=== PATIENT | female | born 1990 | race Two or more races ===

== ENCOUNTER 2024-09-30 14:13 | Emergency (ER) | payer MEDICAID, SELFPAY ==
[2024-09-30 14:13] VITALS: BMI 29.9
[2024-09-30 14:24] VITALS: BP 160/98; PULSE 85; RESP 18; TEMP 36.7; O2SAT 100; BMI 30.6
--- NOTE | 2024-09-30 14:30 | XR_ITS ---
Examination: PA lateral chest 2 views TECHNIQUE: Upright PA lateral chest 2 views Exam date and time: September 30, 2024 1445 hours INDICATIONS: Onset chest pain beginning last night. FINDINGS: Normal heart size Lungs are clear. The osseous structures are intact IMPRESSION: No active disease
--- NOTE | 2024-09-30 14:30 | EKG_ITS ---
[facility] Test Date: 2024-09-30 Pat Name: ANGEL HICKMAN Department: Room: - Gender: Female Supervisor [employer]: : 1990 Requested By: Vicente De Leon (LEANDRO) Order Number: [id number] Reading MD: Vicente De Leon (TRIMMING CASER) Measurements Intervals [place] Rate: 82 P: 57 GA: 169 QRS: 27 QRSD: 101 T: 32 QT: 376 QTc: 442 Interpretive Statements SINUS RHYTHM Compared to ECG 04/02/2024 10:08:18 No significant changes /store/S0/[id number].pdf
--- NOTE | 2024-09-30 14:31 | PD.EDRME ---
Rapid Medical Screening Exam RME Arrival date/time: 09/30/24 14:13 34-year-old female with history of hypertension presents emergency department complaint of chest pain ongoing x 1 day Chief Complaint: Shortness of Breath/Dyspnea Vital signs: Vital Signs Temperature 98.1 F 09/30/24 14:24 Pulse Rate 85 09/30/24 14:24 Respiratory Rate 18 09/30/24 14:24 Blood Pressure 160/98 H 09/30/24 14:24 Pulse Oximetry (%) 100 09/30/24 14:24 Oxygen Delivery Method Room Air 09/30/24 14:24
[2024-09-30 15:07] LABS: Basophils % (Auto) 0 % (0-2.5); Eosinophils # (Auto) 0.1 Thou/mm3 (0.0-0.5); Eosinophils % (Auto) 1 % (0-10); Hematocrit 36.4 % (36.0-46.0); Hemoglobin 12.2 g/dL (12.0-16.0); Immature Granulocytes % (Auto) 1 % (0-0); Immature Granulocytes Auto 0.05 Thou/mm3 (0.00-0.00); Lymphocytes # (Auto) 1.8 Thou/mm3 (1.0-4.8); Lymphocytes % (Auto) 18 % (10-50); Mean Corpuscular HGB Conc 33.5 g/dl (31.0-37.0); Mean Corpuscular Hemoglobin 30.7 pg (25.0-35.0); Mean Corpuscular Volume 92 fL (80-100); Monocytes # (Auto) 0.8 Thou/mm3 (0.0-0.8); Monocytes % (Auto) 7 % (0-12); Neutrophils # (Auto) 7.5 Thou/mm3 (1.8-7.7); Neutrophils % (Auto) 73 % (37-80); Nucleated Red Blood Cell % 0 /100 WBC (0); Platelet Count 357 Thou/mm3 (140-440); RDW Standard Deviation 45.6 fL (36.4-46.3); Red Blood Count 3.98 Miln/mm3 (4.00-5.20); White Blood Count 10.2 Thou/mm3 (3.6-11.0)
[2024-09-30 15:28] LABS: HCG,Qualitative Serum Negative
[2024-09-30 15:35] LABS: Alanine Aminotransferase 54 U/L (10-49); Albumin, Serum 4.4 gm/dL (3.5-5.0); Albumin/Globulin Ratio 1.7 (1.2-2.2); Alkaline Phosphatase 183 U/L (46-116); Anion Gap 8 (7-16); Aspartate Amino Transferase 40 U/L (0-34); BUN/Creatinine Ratio 18 Ratio (12-20); Bilirubin,Total 0.2 mg/dL (0.3-1.2); Blood Urea Nitrogen 11 mg/dL (9-23); Calcium 8.8 mg/dL (8.3-10.6); Calcium (Corrected) 8.8 mg/dL (8.5-10.1); Carbon Dioxide 24.5 mMol/L (20.0-31.0); Chloride 103 mMol/L (98-107); Creatinine (Component) 0.6 mg/dL (0.6-1.3); Estimated Creatinine Clearance 139.6 mL/min (>60); Globulin 2.6 gm/dL (2.3-3.5); Glucose 103 mg/dL (74-106); Osmolality,Calculated 269 (275-295); Potassium 3.5 mMol/L (3.4-5.1); Sodium 135 mMol/L (136-145); Troponin I < 0.002 ng/mL (0.0-0.045); eGFR > 60 See Note
[2024-09-30 15:53] VITALS: BP 144/89; PULSE 86
--- NOTE | 2024-09-30 16:05 | PD.EDADULT ---
ED General RME/HPI General Chief complaint: Shortness of Breath/Dyspnea Stated complaint: TROUBLE BREATHING AND CHEST PAIN Time Seen by Provider: 09/30/24 15:59 Arrival date/time: 09/30/24 14:13 CC: Chest pain HPI onset of right sided chest pain last night, did not wake her up during the night currently 5-6 on a 10 scale. Patient has sites because of specific tenderness along the costosternal border no left-sided chest pain no prior history of similar events. Denies fever chills shortness of breath or difficulty breathing. No OTC medicines taken for pain. RME / HPI RME / HPI narrative: 09/30/24 14:13 34-year-old female with history of hypertension presents emergency department complaint of chest pain ongoing x 1 day Related Data Previous Rx's ?Medication ?Instructions ?Recorded ibuprofen 800 mg tablet (IBU) 800 mg PO TID PRN pain #30 tabs 07/17/21 metaxalone 800 mg tablet (Skelaxin) 800 mg PO TID PRN muscle pain #30 02/16/22 tabs methylprednisolone 4 mg tablets in See Rx Instructions .Route 02/16/22 a dose pack (Methylpred DP) .COMPLEX #21 tabs baclofen 10 mg tablet 10 mg PO BID PRN pain #20 tabs 05/14/22 hydrocodone 5 mg-acetaminophen 325 1 tab PO BID PRN pain #6 tabs 05/14/22 mg tablet ibuprofen 800 mg tablet 800 mg PO TID PRN pain #30 tabs 05/14/22 tramadol 37.5 mg-acetaminophen 325 1 tab PO TID PRN pain #15 tabs 22 mg tablet (Ultracet) fluticasone propionate 50 1 spray intranasal BID #16 grams 12/01/22 mcg/actuation nasal spray,suspension (Flonase Allergy Relief) montelukast 10 mg tablet 10 mg PO QDAY #30 tabs 12/01/22 (Singulair) amoxicillin 875 mg-potassium 1 tab PO BID #14 tabs 04/28/23 clavulanate 125 mg tablet Allergies Allergy/AdvReac Type Severity Reaction Status Date / Time morphine Allergy Severe Anxiety Verified 09/30/24 14:15 latex Allergy Rash Verified 09/30/24 14:16 Review of Systems Review of Systems Narrative Review of Systems: GEN: No fever, no chills, no weight loss EYES: No discharge, no visual changes, no pain HEENT: No ear pain, no congestion, no sore throat PULM: No shortness of breath, no cough, no congestion CV: + chest pain, no dyspnea on exertion, no palpitations GI: No nausea, no vomiting, no diarrhea, no pain, no constipation : No frequency, no urgency, no dysuria MUSC/SKEL: No joint pain, no back pain SKIN: No rash PSYCH: No hallucinations, no depression HEME/LYMPH: No easy bleeding or bruising tendencies NEURO: No weakness, no headache Past Medical History Past Medical History NEUROLOGIC: Negative Neurological Disorders or Seizures CARDIAC: Negative Cardiac Disorders or Congestive Heart Failure RESPIRATORY: Negative Chronic Obstructive Pulmonary Disease (COPD) or Asthma GASTROINTESTINAL: Negative Gastrointestinal Disorders or Colorectal Cancer GENITOURINARY: Negative Genitourinary Disorders, Renal Disease or Prostate Cancer REPRODUCTIVE: Negative Breast Cancer, Endometriosis, Pelvic Inflammatory Disease, Previous Pregnancies, Testicular Cancer or Uterine Prolapse MUSCULOSKELETAL: Negative Musculoskeletal Disorders or Bone Cancer ENDOCRINE: Negative Endocrine Disorders, Diabetes Mellitus Type 1 or Diabetes Mellitus Type 2 HEMATOLOGIC: Positive Anemia; Negative Blood Disorders, Leukemia, Hemophilia, Thalassemia, Sickle Cell Disease or Clotting Problems PSYCHO/SOCIAL: Positive Anxiety OTHER HISTORY: Positive Shingles and Chicken Pox; Negative Hospitalization, Autoimmune Disease, Down Syndrome, Developmental Delay, Falls, Blood Transfusions, Blood Transfusion Reaction, Anesthesia Reactions, Organ Transplant, Chemotherapy, Radiation Therapy, Hyperbaric Therapy, MRSA, VRSA, Vancomycin-Resistant Enterococci, Human Immunodeficiency Virus (HIV), Measles, Mumps, Rubella ([place] Measles), Pertussis, Clostridium Difficile, Breast Cancer, Cervical Cancer, Colorectal Cancer, Lung Cancer, Ovarian Cancer, Prostate Cancer or Testicular Cancer Family History FAMILY HISTORY: Positive Family Cardiac Disorders and Family Cancer; Negative Family Psychiatric Problems, Family Respiratory Disorders, Family Gastrointestinal Problems, Family Surgery or Family Anesthesia Reaction Surgical History SURGICAL: Positive Section; Negative Organ Transplant Social History SMOKING STATUS: Current every day smoker ED Exam Narrative Physical exam: [General: Not in any acute distress Head normocephalic HEENT: Within acceptable limits Neck is supple nontender Chest equal chest rise, site-specific tenderness to palpation along the right costal sternal junction from the upper portion of the sternum to just above the xiphoid process. No left-sided costosternal junction pain with palpation no pain with sternal palpation or rib pain patient on the right side. Respiratory: Clear to auscultation no wheezes crackles or rubs CV: Rate rhythm is regular no murmurs rubs or clicks Abdomen is soft nontender no masses positive bowel sounds all 4 quadrants Back: No CVA tenderness no spinous process tenderness from cervical spine thoracic and lumbar spine Skin: Intact no petechiae rash induration ulceration or crepitus Extremities: Moving all extremity against resistance cap refill less than 2 seconds neurosensory intact Neuro: Awake alert oriented x3 Glascow coma 15 no focal deficits] Course Quality Measures none Orders Category Date Time Status EKG (ED ONLY) *Do not use* NOW Care 09/30/24 14:30 Completed EKG (ED Only) Stat Exams 09/30/24 14:30 Draft XR chest 2V Stat Exams 09/30/24 14:30 Completed CBC Stat Lab 09/30/24 14:54 Completed Comprehensive Metabolic Panel Stat Lab 09/30/24 14:54 Completed HCG,Qualitative Serum Stat Lab 09/30/24 14:54 Completed Troponin I Stat Lab 09/30/24 14:54 Completed Vital Signs Vital signs: Vital Signs Temperature 98.1 F 09/30/24 14:24 Pulse Rate 85 09/30/24 14:24 Respiratory Rate 18 09/30/24 14:24 Blood Pressure 160/98 H 09/30/24 14:24 Pulse Oximetry (%) 100 09/30/24 14:24 Oxygen Delivery Method Room Air 09/30/24 14:24 [facility] Patient data External records reviewed:: [facility] previous records Clinical information provided by:: patient Social determinants that could affect healthcare access:: none Patient has the following chronic illnesses:: Anxiety How is presenting disease/condition affected by chronic disease/condition?: uneffected by Evaluation data The following diagnostics were reviewed and interpreted by me:: lab results, radiology exam(s) and EKG tracing(s) Lab and/or radiology exams considered but not ordered:: EKG performed at 1448 shows ventricular rate of 82 VT interval 169 QRS of 101 QTc of 415 there is normal sinus rhythm. Troponin is negative CBC shows no acute leukocytosis anemia thrombocytopenia CMP shows no electrolyte imbalances renal impairment transaminitis or T. bili elevation. Interpretation Summary: This most likely costochondritis Medications Medications considered but not ordered:: None Medication administrations:: None Consultations Consultation(s) initiated? (list below): No Diagnosis Differential Diagnosis ED Complaint MDM: ACS DC pneumonia Most likely diagnosis given after review of the tests above:: Costochondritis Admission Indicated Admission indicated?: not indicated Explain why admission is indicated or not indicated:: Stable for outpatient follow-up Admission Request Was there a request for admission?: No Disposition Plan Disposition Plan: Discharge Discharge Attestation Discharge Attestation: The patient and all family members were given an opportunity to ask questions and understood the discharge instructions. Discharge instructions specifically effects, indications for sooner follow up or return to the emergency department, and the expected course of current diagnosis. Patient condition: Stable Medical Decision Making Differential Diagnosis Differential Diagnosis: ACS DC pneumonia Lab Data 09/30/24 14:54 09/30/24 14:54 Labs: Lab Results 09/30/24 Range/Units 14:54 WBC 10.2 (3.6-11.0) Thou/mm3 RBC 3.98 L (4.00-5.20) Miln/mm3 Hgb 12.2 (12.0-16.0) g/dL Hct 36.4 (36.0-46.0) % MCV 92 (80-100) fL MCH 30.7 (25.0-35.0) pg MCHC 33.5 (31.0-37.0) g/dl RDW Std Deviation 45.6 (36.4-46.3) fL Plt Count 357 (140-440) Thou/mm3 Neut % (Auto) 73 (37-80) % Lymph % (Auto) 18 (10-50) % [place] % (Auto) 7 (0-12) % Eos % (Auto) 1 (0-10) % Baso % (Auto) 0 (0-2.5) % Neut # (Auto) 7.5 (1.8-7.7) Thou/mm3 Lymph # (Auto) 1.8 (1.0-4.8) Thou/mm3 [place] # (Auto) 0.8 (0.0-0.8) Thou/mm3 Eos # (Auto) 0.1 (0.0-0.5) Thou/mm3 Baso # (Auto) 0.0 (0.0-0.2) Thou/mm3 Immature Gran # (Auto) 0.05 H (0.00-0.00) Thou/mm3 Absolute Nucleated RBC 0.00 (0.00-0.00) Thou/mm3 Immature Gran % 1 H (0-0) % Nucleated RBC % 0 (0) /100 WBC Sodium 135 L (136-145) mMol/L Potassium 3.5 (3.4-5.1) mMol/L Chloride 103 (98-107) mMol/L Carbon Dioxide 24.5 (20.0-31.0) mMol/L Anion Gap 8 (7-16) BUN 11 (9-23) mg/dL Creatinine 0.6 (0.6-1.3) mg/dL Estim Creat Clear Calc 139.6 (>60) mL/min eGFR > 60 (60 - ) See Note BUN/Creatinine Ratio 18 (12-20) Ratio Glucose 103 (74-106) mg/dL Calculated Osmolality 269 L (275-295) Calcium 8.8 (8.3-10.6) mg/dL Corrected Calcium 8.8 (8.5-10.1) mg/dL Total Bilirubin 0.2 L (0.3-1.2) mg/dL AST 40 H (0-34) U/L ALT 54 H (10-49) U/L Alkaline Phosphatase 183 H (46-116) U/L Troponin I < 0.002 (0.0-0.045) ng/mL Total Protein 7.0 (5.7-8.2) gm/dL Albumin 4.4 (3.5-5.0) gm/dL Globulin 2.6 (2.3-3.5) gm/dL Albumin/Globulin Ratio 1.7 (1.2-2.2) HCG, Qual Negative Discharge Plan Plan Patient Disposition: HOME (Self Care) Patient condition on transfer: Stable Prescriptions/Referrals Prescriptions/Med Rec: No Action ibuprofen 800 mg tablet 800 mg PO TID PRN (Reason: pain) Qty: 30 0RF hydrocodone-acetaminophen 5-325 mg tablet 1 tab PO BID MDD 10 PRN (Reason: pain) Qty: 6 0RF baclofen 10 mg tablet 10 mg PO BID PRN (Reason: pain) Qty: 20 0RF ibuprofen [IBU] 800 mg tablet 800 mg PO TID PRN (Reason: pain) Qty: 30 0RF methylprednisolone [Methylpred DP] 4 mg tablets,dose pack See Rx Instructions .ROUTE .COMPLEX Qty: 21 0RF Rx Instructions: Take as directed on pack metaxalone [Skelaxin] 800 mg tablet 800 mg PO TID PRN (Reason: muscle pain) Qty: 30 0RF tramadol-acetaminophen [Ultracet] 37.5-325 mg tablet 1 tab PO TID PRN (Reason: pain) Qty: 15 0RF amoxicillin-pot clavulanate 875-125 mg tablet 1 tab PO BID Qty: 14 0RF fluticasone propionate [Flonase Allergy Relief] 50 mcg/actuation spray,suspension 1 spray intranasal BID Qty: 16 0RF Rx Instructions: administer into each nostril montelukast [Singulair] 10 mg tablet 10 mg PO QDAY Qty: 30 0RF Referrals: Eladia Vergara PA-C [Primary Care Provider] - In 1 week Problem List Clinical Impression: Costochondritis Patient/Caregiver Discharge Instructions Education Materials: Costochondritis Additional Instructions: Take ibuprofen or Tylenol for pain follow-up with your primary care provider. Print Language: Frisian Stand Alone Forms: Claudia Award Info., Patient Portal Info Letter, Work/School Release PA/DIRECTOR OF RETAIL OPERATIONS Supervising Physician PA/DIRECTOR OF RETAIL OPERATIONS Supervising Physician: Al Pathak ENP
== END 2024-09-30 16:28 | disposition home or self-care (01) ==
PROVIDERS: Nurse Practitioner Primary Care; Emergency Provider Emergency Medicine; PCP Physician Assistant
DX: M94.0 Chondrocostal junction syndrome [Tietze] (principal); I10 Essential (primary) hypertension
CPT/HCPCS: 36415; 71046; 80053; 84484; 84703; 85025; 93005; 99283

== ENCOUNTER 2025-05-10 21:54 | Emergency (ER) | payer MEDICAID, SELFPAY ==
[2025-05-10 21:55] VITALS: BMI 32.3
[2025-05-10 22:37] VITALS: BP 145/90; PULSE 76; RESP 18; TEMP 37.2; O2SAT 97
--- NOTE | 2025-05-10 22:47 | XR_ITS ---
Examination: CT abdomen and pelvis without contrast. Coronal 3-D reconstructions. Sagittal 2-D reconstructions. Date and time of exam:May 11, 2025 0019 hours INDICATIONS: Lower abdominal pain and cramping beginning 2 weeks ago CTDI: vol (mGy): 9.50 DLP: (mGycm): 492 Technique: Axial images of the abdomen have been obtained, 3 mm slice thickness Intravenous contrast material has not been administered. Low dose protocols were performed. One or more of the following dose reduction techniques were used; automated exposure control, adjustment of the mA and/or KV according to patient size, use of iterative reconstruction technique. Findings: No focal liver or splenic lesions Absent gallbladder No pancreatic or adrenal mass Right renal calculi, the largest 3 mm No hydronephrosis or ureteral calculi Aorta normal size Normal appendix No bowel obstruction or diverticulitis No pelvic mass No bladder mass or bladder calculi Mild disc narrowing L5-S1 IMPRESSION: Nonobstructing right renal calculi Normal appendix
[2025-05-10 23:12] LABS: Basophils # (Auto) 0.1 Thou/mm3 (0.0-0.2); Basophils % (Auto) 1 % (0-2.5); Eosinophils # (Auto) 0.1 Thou/mm3 (0.0-0.5); Eosinophils % (Auto) 1 % (0-10); Hematocrit 35.2 % (36.0-46.0); Hemoglobin 12.0 g/dL (12.0-16.0); Immature Granulocytes Auto 0.04 Thou/mm3 (0.00-0.00); Lymphocytes # (Auto) 2.6 Thou/mm3 (1.0-4.8); Lymphocytes % (Auto) 26 % (10-50); Mean Corpuscular HGB Conc 34.1 g/dl (31.0-37.0); Mean Corpuscular Hemoglobin 31.3 pg (25.0-35.0); Mean Corpuscular Volume 92 fL (80-100); Monocytes # (Auto) 0.8 Thou/mm3 (0.0-0.8); Monocytes % (Auto) 8 % (0-12); Neutrophils # (Auto) 6.4 Thou/mm3 (1.8-7.7); Neutrophils % (Auto) 64 % (37-80); Nucleated Red Blood Cell # 0.00 Thou/mm3 (0.00-0.00); Nucleated Red Blood Cell % 0 /100 WBC (0); Platelet Count 319 Thou/mm3 (140-440); RDW Standard Deviation 43.7 fL (36.4-46.3); Red Blood Count 3.84 Miln/mm3 (4.00-5.20); White Blood Count 9.9 Thou/mm3 (3.6-11.0)
[2025-05-10 23:29] LABS: Alanine Aminotransferase 13 U/L (10-49); Albumin, Serum 4.3 gm/dL (3.5-5.0); Albumin/Globulin Ratio 1.6 (1.2-2.2); Alkaline Phosphatase 107 U/L (46-116); Anion Gap 8 (7-16); Aspartate Amino Transferase 14 U/L (0-34); BUN/Creatinine Ratio 19 Ratio (12-20); Bilirubin,Total 0.3 mg/dL (0.3-1.2); Blood Urea Nitrogen 13 mg/dL (9-23); Calcium 9.1 mg/dL (8.3-10.6); Calcium (Corrected) 9.1 mg/dL (8.5-10.1); Carbon Dioxide 27.5 mMol/L (20.0-31.0); Chloride 107 mMol/L (98-107); Creatinine (Component) 0.7 mg/dL (0.6-1.3); Estimated Creatinine Clearance 121.7 mL/min (>60); Globulin 2.7 gm/dL (2.3-3.5); Glucose 85 mg/dL (74-106); Lipase 33 U/L (12-53); Osmolality,Calculated 282 (275-295); Potassium 4.2 mMol/L (3.4-5.1); Sodium 142 mMol/L (136-145); Total Protein 7.0 gm/dL (5.7-8.2); eGFR > 60 See Note
[2025-05-10 23:30] LABS: Collection Type, Urine Clean Catch
[2025-05-10 23:36] LABS: HCG Qualitative,Urine Negative
[2025-05-10 23:38] LABS: Amorphous Crystals,Urine Present (Absent); Bacteria,Urine Rare; Bilirubin,Urine Negative (Negative); Blood,Urine Negative (Negative); Clarity,Urine Clear (Clear/Hazy); Color,Urine Lt-Yellow (Lt Yel-Yel); Glucose, Urine Negative (Negative); Ketones,Urine Negative (Negative); Leukocyte Esterase,Urine Negative (Negative); Nitrite,Urine Negative (Negative); PH,Urine 7.0 (5.0-7.0); Protein,Urine Negative (Neg - Trace); RBC,Urine 4 /hpf (0-3); Specific Gravity,Urine 1.023 (1.001-1.035); Squamous Epithelial Cell,Urine 8 /hpf (0-5); Urobilinogen,Urine Negative mg/dL (0.0-1.0); WBC,Urine 1 /hpf (0-5)
--- NOTE | 2025-05-11 01:20 | PRELIM_ITS ---
CT scan of the abdomen and pelvis without intravenous contrast (axial sections with sagittal and coronal reformats) May 11, 2025 at 0019 hours Clinical History: Abdominal pain. Comparison: No prior study is available for comparison. Findings: The lung bases are clear. The gallbladder is surgically absent. The liver, pancreas, spleen, left kidney and adrenals are unremarkable on this noncontrast study. There are 2-3 mm non- obstructing right renal calculi. There is no ureteric calculus or ureteral obstruction. No evidence of bowel obstruction. The appendix is within normal limits (images [id number]). There is no mesenteric or retroperitoneal adenopathy. The urinary bladder is unremarkable. The uterus and adnexa are unremarkable. There is no free fluid or free air. There are small fat-containing bilateral inguinal hernias. The osseous structures are unremarkable. Impression: No evidence of acute intra-abdominal or pelvic pathology. Report Electronically Signed By: Jenaro Hassan 05/11/2025 1:19:13 AM [EST]
--- NOTE | 2025-05-11 01:42 | PD.EDABDPN ---
ED Abdominal Pain RME/HPI General Chief Complaint: Abdominal Pain Stated complaint: LOWER ABD CRAMPING AND NAUSEA FOR 2 WEEKS Time seen by provider: 05/10/25 22:00 Arrival date/time: 05/10/25 21:54 This is a case of 35-year-old female who came in in the emergency room due to lower abdominal pain cramping in character with nausea and vomiting for 2 weeks patient denies any diarrhea constipation or blood in urine persistence of the symptoms thus patient decided to sought consult here in the emergency room Limitations: no limitations Related Data Previous Rx's ?Medication ?Instructions ?Recorded ibuprofen 800 mg tablet (IBU) 800 mg PO TID PRN pain #30 tabs 07/17/21 metaxalone 800 mg tablet (Skelaxin) 800 mg PO TID PRN muscle pain #30 02/16/22 tabs methylprednisolone 4 mg tablets in See Rx Instructions .Route 02/16/22 a dose pack (Methylpred DP) .COMPLEX #21 tabs baclofen 10 mg tablet 10 mg PO BID PRN pain #20 tabs 05/14/22 hydrocodone 5 mg-acetaminophen 325 1 tab PO BID PRN pain #6 tabs 05/14/22 mg tablet ibuprofen 800 mg tablet 800 mg PO TID PRN pain #30 tabs 05/14/22 tramadol 37.5 mg-acetaminophen 325 1 tab PO TID PRN pain #15 tabs 08/17/22 mg tablet (Ultracet) fluticasone propionate 50 1 spray intranasal BID #16 grams 12/01/22 mcg/actuation nasal spray,suspension (Flonase Allergy Relief) montelukast 10 mg tablet 10 mg PO QDAY #30 tabs 12/01/22 (Singulair) amoxicillin 875 mg-potassium 1 tab PO BID #14 tabs 04/28/23 clavulanate 125 mg tablet hydrocodone 5 mg-acetaminophen 325 1 tab PO Q6H PRN pain #10 tabs 05/11/25 mg tablet ondansetron 4 mg disintegrating 4 mg PO Q8H PRN nausea and 05/11/25 tablet vomiting #10 tabs Allergies Allergy/AdvReac Type Severity Reaction Status Date / Time morphine Allergy Severe Anxiety Verified 05/10/25 21:55 latex Allergy Rash Verified 05/10/25 21:55 Review of Systems Review of Systems Systems Reviewed: All systems reviewed, normal except as documented Constitutional Constitutional: Reports system reviewed and no additional complaints, except as documented, Reports as per HPI, Denies anorexia, Denies chills and Denies fever(s) ENT Ears, Nose, Mouth, and Throat: Denies dysphagia Cardiovascular Cardiovascular: Reports system reviewed and no additional complaints, except as documented, Reports as per HPI, Reports chest pain and Denies dyspnea Respiratory Respiratory: Reports system reviewed and no additional complaints, except as documented, Denies chest congestion, Denies cough and Denies dyspnea Gastrointestinal Gastrointestinal: Reports system reviewed and no additional complaints, except as documented, Reports abdominal pain, Denies belching, Denies bloating, Denies change in bowel habits, Denies change in stool character, Denies coffee ground emesis, Denies constipation, Denies cramping, Denies diarrhea, Denies dyspepsia, Denies dysphagia, Denies early satiety, Denies excessive flatus, Denies fecal incontinence, Denies heartburn, Denies hematemesis, Denies hematochezia, Denies loose stools, Denies melena, Reports nausea and Reports vomiting Genitourinary Genitourinary: Reports system reviewed and no additional complaints, except as documented, Reports as per HPI, Denies abnormal menses, Denies abnormal vaginal bleeding, Denies amenorrhea, Denies change in libido, Denies difficulty conceiving, Denies difficulty voiding, Denies dysmenorrhea, Denies dyspareunia, Denies dysuria, Denies flank pain, Denies genital lesions, Denies genital pruritis, Denies light periods, Denies menorrhagia, Denies metrorrhagia, Denies nipple discharge, Denies nocturia, Denies post void dribbling, Denies urinary frequency, Denies urinary incontinence, Denies urinary hesitancy, Denies urinary urgency, Denies vaginal discharge, Denies vaginal dryness, Denies vaginal odor and Denies vaginal pruritus Integumentary/Breasts Skin/Breast: Denies nipple discharge Neurologic Neurologic: Reports system reviewed and no additional complaints, except as documented and Reports as per HPI Psychiatric Psychiatric: Denies change in libido Endocrine Endocrine: Denies change in libido Past Medical History Past Medical History NEUROLOGIC: Negative Neurological Disorders or Seizures CARDIAC: Negative Cardiac Disorders or Congestive Heart Failure RESPIRATORY: Negative Chronic Obstructive Pulmonary Disease (COPD) or Asthma GASTROINTESTINAL: Negative Gastrointestinal Disorders or Colorectal Cancer GENITOURINARY: Negative Genitourinary Disorders, Renal Disease or Prostate Cancer REPRODUCTIVE: Negative Breast Cancer, Endometriosis, Pelvic Inflammatory Disease, Previous Pregnancies, Testicular Cancer or Uterine Prolapse MUSCULOSKELETAL: Negative Musculoskeletal Disorders or Bone Cancer ENDOCRINE: Negative Endocrine Disorders, Diabetes Mellitus Type 1 or Diabetes Mellitus Type 2 HEMATOLOGIC: Positive Anemia; Negative Blood Disorders, Leukemia, Hemophilia, Thalassemia, Sickle Cell Disease or Clotting Problems PSYCHO/SOCIAL: Positive Anxiety OTHER HISTORY: Positive Shingles and Chicken Pox; Negative Hospitalization, Autoimmune Disease, Down Syndrome, Developmental Delay, Falls, Blood Transfusions, Blood Transfusion Reaction, Anesthesia Reactions, Organ Transplant, Chemotherapy, Radiation Therapy, Hyperbaric Therapy, MRSA, VRSA, Vancomycin-Resistant Enterococci, Human Immunodeficiency Virus (HIV), Measles, Mumps, Rubella (English Measles), Pertussis, Clostridium Difficile, Breast Cancer, Cervical Cancer, Colorectal Cancer, Lung Cancer, Ovarian Cancer, Prostate Cancer or Testicular Cancer Family History FAMILY HISTORY: Positive Family Cardiac Disorders and Family Cancer; Negative Family Psychiatric Problems, Family Respiratory Disorders, Family Gastrointestinal Problems, Family Surgery or Family Anesthesia Reaction Surgical History SURGICAL: Positive Section; Negative Organ Transplant Social History SMOKING STATUS: Current every day smoker ED Exam General Limitations: Present no limitations General appearance: Present alert and in no apparent distress Head Head exam: Present atraumatic, normocephalic and normal inspection Eye Eye exam: Present normal appearance, PERRL and EOMI ENT ENT exam: Present normal exam, normal oropharynx and mucous membranes moist Neck Neck exam: Present normal inspection, full ROM, trachea midline and other (Negative for meningeal sign); Absent tenderness, meningismus, lymphadenopathy or thyromegaly Chest Chest inspection: Present normal inspection and symmetric chest wall rise Respiratory Respiratory exam: Present normal lung sounds bilaterally; Absent respiratory distress, wheezes, stridor, accessory muscle use or prolonged expiratory phase Cardiovascular Cardiovascular exam: Present regular rate, normal rhythm and normal heart sounds; Absent bradycardia, tachycardia, irregular rhythm, systolic murmur or diastolic murmur Abdominal Exam Abdominal exam: Present soft and tenderness (Mild tenderness on the right lower quadrant and suprapubic area no CVA tenderness); Absent distention, guarding, rebound, normal bowel sounds, diminished bowel sounds, hyperactive bowel sounds, hypoactive bowel sounds, organomegaly, psoas sign, obturator sign, Jauregui's sign, Rovsing's sign or tenderness at McBurney's Point Abdominal tenderness: Present RLQ, suprapubic and mild Extremities Exam Extremities exam: Present normal inspection and full ROM Back Exam Back exam: Present normal inspection and full ROM Neurological Exam Neurological exam: Present alert, oriented X3, CN II-XII intact, normal gait and reflexes normal; Absent motor sensory deficit Psychiatric Psychiatric exam: Present normal affect and normal mood Skin Skin exam: Present warm, dry, intact and normal color Course Quality Measures none Orders Category Date Time Status CT abdomen pelvis wo con Stat Exams 05/10/25 22:47 Taken CBC Stat Lab 05/10/25 22:50 Completed Comprehensive Metabolic Panel Stat Lab 05/10/25 22:50 Completed HCG Qualitative,Urine Stat Lab 05/10/25 23:24 Completed Lipase Stat Lab 05/10/25 22:50 Completed Urinalysis Stat Lab 05/10/25 23:24 Completed HYDROcodone*/APAP 5/325 [Viola 5/325] Med 05/11/25 01:41 Discontinued 1 tab PO X1 ONE Ketorolac Inj [Toradol Inj] Med 05/11/25 01:40 Discontinued 30 mg IM X1 ONE Ondansetron Inj [Zofran Inj] Med 05/11/25 01:40 Discontinued 4 mg IVP X1 ONE Sodium Chloride 0.9% 1000 ml [Ns] 1,000 ml Med 05/11/25 01:40 Active IV 999 mls/hr Tamsulosin HCl [Flomax] Med 05/11/25 01:40 Discontinued 0.4 mg PO X1 ONE Vital Signs Vital signs: Vital Signs Temperature 98.9 F 05/10/25 22:37 Pulse Rate 76 05/10/25 22:37 Respiratory Rate 18 05/10/25 22:37 Blood Pressure 145/90 H 05/10/25 22:37 Pulse Oximetry (%) 97 05/10/25 22:37 Oxygen Delivery Method Room Air 05/10/25 22:37 Patient is afebrile not tachycardic not tachypneic BP stable not hypoxic oxygen saturation in room air 97% Abdominal Pain MDM MDM Narrative MDM Narrative:: This is a case of 35-year-old female who came in in the emergency room due to lower abdominal pain cramping in character with nausea and vomiting for 2 weeks patient denies any diarrhea constipation or blood in urine persistence of the symptoms thus patient decided to sought consult here in the emergency room physical examination patient is awake alert oriented not in distress nontoxic looking vital signs stable BP stable not tachycardic not tachypneic afebrile and nonhypoxic patient abdominal exam is benign nonsurgical no guarding no rebound no rigidity mild tenderness in suprapubic and right lower quadrant negative psoas negative straight or negative Rovsing's negative Conway's negative Jauregui sign negative CVA tenderness bladder is not distended not tender patient blood test showed no leukocytosis no anemia kidney and liver function is normal no electrolyte imbalance patient lipase is normal patient urinalysis is normal CT scan showed absence of the gallbladder patient noted to have a 2-3 nonobstructive renal calculi in the right with small fat inguinal hernia patient was given a bolus of normal saline Flomax Toradol IV and Viola patient is allergy to morphine but patient states that she cannot tolerate Viola patient was observed for 1 hour no allergic reaction noted with Viola after few hours patient condition markedly improved abdominal pain is resolved no recurrence of vomiting patient will be discharged home in stable condition she was advised to follow-up with PCP to be referred to urologist for inguinal hernia and renal calculi nephrolithiasis for any worsening symptoms or any emergent concerns she will return in the emergency room immediately or call 911 Patient was discharged with comfortable condition walking with stable gait. Patient verbalized no further complains explained diagnosis and answered patient question. Patient is comfortable with the proposed management plan including the need to follow up with his/her primary care physician and any specialist if applicable Discussed patient for any urgent condition or worsening sx, He/She needed to go to emergency room immediately or call 911. Patient acknowledge the responsibility to follow up as instructed and to monitor her/his symptoms. For any persistence of the symptoms for more than 3-5 days return precaution advised. Discussed the result of the test and was given printed discharge instruction Patient data External records reviewed:: [facility] Clinical information provided by:: patient Social determinants that could affect healthcare access:: none Patient has the following chronic illnesses:: None How is presenting disease/condition affected by chronic disease/condition?: no chronic disease Evaluation data The following diagnostics were reviewed and interpreted by me:: lab results and radiology exam(s) Lab and/or radiology exams considered but not ordered:: Reviewed Interpretation Summary: Reviewed Medications / Prescriptions Medications or Prescriptions considered but not ordered:: Given Medication administrations:: Medication Administration History Sodium Chloride (Ns) 1,000 mls @ 999 mls/hr IV .Q1H1M ONE Stop: 05/11/25 02:40 Last Admin: 05/11/25 02:02 Dose: 999 mls/hr Documented By: MARIAELENA Discontinued Medications Hydrocodone Bitart/Acetaminophen (Hydrocodone/Apap 5/325 Tablet) 1 tab PO X1 ONE Stop: 05/11/25 01:42 Last Admin: 05/11/25 02:02 Dose: 1 tab Documented By: MARIAELENA Ketorolac Tromethamine (Ketorolac Inj 60 Mg/2 Ml Vial) 30 mg IM X1 ONE Stop: 05/11/25 01:41 Last Admin: 05/11/25 02:01 Dose: 30 mg Documented By: MARIAELENA Ondansetron HCl (Ondansetron Inj 2 Mg/Ml Inj 2 Ml) 4 mg IVP X1 ONE; Protocol Stop: 05/11/25 01:41 Last Admin: 05/11/25 02:02 Dose: 4 mg Documented By: MARIAELENA Tamsulosin HCl (Tamsulosin Hcl 0.4 Mg Capsule) 0.4 mg PO X1 ONE Stop: 05/11/25 01:41 Last Admin: 05/11/25 02:02 Dose: 0.4 mg Documented By: MARIAELENA Given Consultations Consultation(s) initiated? (list below): No Diagnosis Differential diagnosis abdominal pain: abdominal pain, acute appendicitis, calculus of kidney, diverticulitis and gastroenteritis Most likely diagnosis given after review of the tests above:: Nephrolithiasis inguinal hernia Admission Indicated Admission indicated?: not indicated Explain why admission is indicated or not indicated:: Not indicated Admission Request Was there a request for admission?: No Admission Attestation Admission request attestation: Not indicated Disposition Plan Disposition Plan: Discharge Discharge Attestation Discharge Attestation: The patient and all family members were given an opportunity to ask questions and understood the discharge instructions. Discharge instructions specifically effects, indications for sooner follow up or return to the emergency department, and the expected course of current diagnosis. Patient condition: Stable Discharge Plan Plan Patient Disposition: HOME (Self Care) Patient condition on transfer: Stable Prescriptions/Referrals Prescriptions/Med Rec: New hydrocodone-acetaminophen 5-325 mg tablet 1 tab PO Q6H MDD max 4 tabs per day PRN (Reason: pain) Qty: 10 0RF ondansetron 4 mg tablet,disintegrating 4 mg PO Q8H PRN (Reason: nausea and vomiting) Qty: 10 0RF No Action ibuprofen 800 mg tablet 800 mg PO TID PRN (Reason: pain) Qty: 30 0RF hydrocodone-acetaminophen 5-325 mg tablet 1 tab PO BID MDD 10 PRN (Reason: pain) Qty: 6 0RF baclofen 10 mg tablet 10 mg PO BID PRN (Reason: pain) Qty: 20 0RF ibuprofen [IBU] 800 mg tablet 800 mg PO TID PRN (Reason: pain) Qty: 30 0RF methylprednisolone [Methylpred DP] 4 mg tablets,dose pack See Rx Instructions .ROUTE .COMPLEX Qty: 21 0RF Rx Instructions: Take as directed on pack metaxalone [Skelaxin] 800 mg tablet 800 mg PO TID PRN (Reason: muscle pain) Qty: 30 0RF tramadol-acetaminophen [Ultracet] 37.5-325 mg tablet 1 tab PO TID PRN (Reason: pain) Qty: 15 0RF amoxicillin-pot clavulanate 875-125 mg tablet 1 tab PO BID Qty: 14 0RF fluticasone propionate [Flonase Allergy Relief] 50 mcg/actuation spray,suspension 1 spray intranasal BID Qty: 16 0RF Rx Instructions: administer into each nostril montelukast [Singulair] 10 mg tablet 10 mg PO QDAY Qty: 30 0RF Referrals: Eladia Vergara PA-C [Primary Care Provider] - In 1 week Problem List Clinical Impression: Abdominal pain, Nephrolithiasis, Bilateral inguinal hernia Patient/Caregiver Discharge Instructions Education Materials: Abdominal Pain, What Is a Hernia?, Kidney Stones Your Evaluation, ED Hernia (Adult) Additional Instructions: Follow-up with your primary care physician in 2 days for reevaluation and to be referred to urologist for further evaluation and treatment of nephrolithiasis and bilateral inguinal hernia worsening symptoms or any emergent concern call 911 or go to the nearest emergency room take your medication as directed increase water intake keep hydrated Print Language: Danish Stand Alone Forms: Claudia Award Info., Patient Portal Info Letter PA/SETH Supervising Physician PA/SETH Supervising Physician: dr rocha
[2025-05-11] MEDS: KETOROLAC INJ 60 MG/2 ML VIAL 30 MG IM (02:01)
[2025-05-11] MEDS: ONDANSETRON INJ 2 MG/ML INJ 2 ML 4 MG IVP (02:02)
[2025-05-11] MEDS: SODIUM CHLORIDE 0.9% 1000 ML 1,000 ML 999 ML IV (02:02)
[2025-05-11] MEDS: HYDROcodone/APAP 5/325 TABLET 1 TAB PO (02:02)
[2025-05-11] MEDS: TAMSULOSIN HCL 0.4 MG CAPSULE PO (02:02)
[2025-05-11 02:44] VITALS: BP 120/75; PULSE 82; RESP 16; TEMP 37; O2SAT 98
== END 2025-05-11 02:45 | disposition home or self-care (01) ==
PROVIDERS: Nurse Practitioner Family; Emergency Provider Emergency Medicine; PCP Physician Assistant
DX: N20.0 Calculus of kidney (principal); K40.20 Bilateral inguinal hernia, without obstruction or gangrene, not specified as recurrent
CPT/HCPCS: 36415; 74176; 80053; 81001; 81025; 83690; 85025; 96361; 96372; 96374; 99283; J1885; J2405; J7030; A9270

== ENCOUNTER 2025-10-01 11:52 | Emergency (ER) | payer MEDICAID, SELFPAY ==
[2025-10-01 11:53] VITALS: BMI 32.4
[2025-10-01 12:12] VITALS: BP 137/97; PULSE 91; RESP 18; TEMP 36.9; O2SAT 100
--- NOTE | 2025-10-01 12:16 | EKG_ITS ---
[facility] Test Date: 2025-10-01 Pat Name: ANGEL HICKMAN Department: Room: - Gender: Female [employer]: : 1990 Requested By: Vicente De Leon (LEANDRO) Order Number: [id number] Reading MD: Vicente De Leon (BIB[employer]IC SERVICES SPECIALIST) Measurements Intervals [place] Rate: 91 P: 27 KS: 144 QRS: 24 QRSD: 80 T: 35 QT: 273 QTc: 336 Interpretive Statements SINUS RHYTHM NONSPECIFIC T-WAVE ABNORMALITY Compared to ECG 09/30/2024 14:48:04 T-wave abnormality now present /store/S0/[id number].pdf
--- NOTE | 2025-10-01 12:16 | XR_ITS ---
EXAMINATION: PA lateral chest 2 views TECHNIQUE: Upright PA lateral chest 2 views Date and time: October 01, 2025, 12:26 p.m., comparison September 30, 2024 1446 hours INDICATIONS: Left-sided chest pain and vomiting blood today FINDINGS: Normal heart size Lungs are clear Minor scarring left base No pneumonia or pulmonary edema Intact osseous rectors IMPRESSION: No pneumonia or pulmonary edema
--- NOTE | 2025-10-01 12:16 | PD.EDRME ---
Rapid Medical Screening Exam RME Arrival date/time: 10/01/25 11:52 35-year-old female presents to the Emergency Department today stating that she was in the shower today and began coughing blood Chief Complaint: GI Bleed Vital signs: Vital Signs Temperature 98.5 F 10/01/25 12:12 Pulse Rate 91 10/01/25 12:12 Respiratory Rate 18 10/01/25 12:12 Blood Pressure 137/97 H 10/01/25 12:12 Pulse Oximetry (%) 100 10/01/25 12:12 Oxygen Delivery Method Room Air 10/01/25 12:12 Vital signs reviewed by provider: Yes Exam: On exam well-appearing does not appear ill or toxic Clinical Impression: Labs and imaging obtained
[2025-10-01 13:01] LABS: Basophils # (Auto) 0.1 Thou/mm3 (0.0-0.2); Basophils % (Auto) 1 % (0-2.5); Eosinophils # (Auto) 0.0 Thou/mm3 (0.0-0.5); Eosinophils % (Auto) 0 % (0-10); Hematocrit 40.0 % (36.0-46.0); Hemoglobin 13.4 g/dL (12.0-16.0); Immature Granulocytes Auto 0.03 Thou/mm3 (0.00-0.00); Lymphocytes # (Auto) 1.1 Thou/mm3 (1.0-4.8); Lymphocytes % (Auto) 12 % (10-50); Mean Corpuscular HGB Conc 33.5 g/dl (31.0-37.0); Mean Corpuscular Hemoglobin 30.4 pg (25.0-35.0); Mean Corpuscular Volume 91 fL (80-100); Monocytes # (Auto) 0.7 Thou/mm3 (0.0-0.8); Monocytes % (Auto) 8 % (0-12); Neutrophils # (Auto) 7.1 Thou/mm3 (1.8-7.7); Neutrophils % (Auto) 79 % (37-80); Nucleated Red Blood Cell # 0.00 Thou/mm3 (0.00-0.00); Nucleated Red Blood Cell % 0 /100 WBC (0); Platelet Count 331 Thou/mm3 (140-440); RDW Standard Deviation 44.9 fL (36.4-46.3); Red Blood Count 4.41 Miln/mm3 (4.00-5.20); White Blood Count 9.0 Thou/mm3 (3.6-11.0)
[2025-10-01 13:08] LABS: HCG,Qualitative Serum Negative
[2025-10-01 13:16] LABS: Alanine Aminotransferase 35 U/L (10-49); Albumin, Serum 5.0 gm/dL (3.5-5.0); Albumin/Globulin Ratio 1.7 (1.2-2.2); Alkaline Phosphatase 132 U/L (46-116); Anion Gap 11 (7-16); Aspartate Amino Transferase 34 U/L (0-34); BUN/Creatinine Ratio 14 Ratio (12-20); Bilirubin,Total 0.7 mg/dL (0.3-1.2); Blood Urea Nitrogen 11 mg/dL (9-23); Calcium 9.4 mg/dL (8.3-10.6); Calcium (Corrected) 9.4 mg/dL (8.5-10.1); Carbon Dioxide 25.3 mMol/L (20.0-31.0); Chloride 104 mMol/L (98-107); Creatinine (Component) 0.8 mg/dL (0.6-1.3); Estimated Creatinine Clearance 106.8 mL/min (>60); Globulin 2.9 gm/dL (2.3-3.5); Glucose 111 mg/dL (74-106); Magnesium 1.8 mg/dL (1.6-2.6); Osmolality,Calculated 279 (275-295); Potassium 3.8 mMol/L (3.4-5.1); Sodium 140 mMol/L (136-145); Total Protein 7.9 gm/dL (5.7-8.2); Troponin I < 0.002 ng/mL (0.0-0.045); eGFR > 60 See Note
[2025-10-01 13:19] LABS: D-Dimer < 250 ng/mL (<600)
[2025-10-01 13:28] LABS: B-Type Natriuretic Peptide < 20 pg/mL (0-100)
[2025-10-01 13:49] LABS: INR 1.0 (0.9-1.3); Partial Thromboplastin Time 29.7 Seconds (22.0-36.0); Prothrombin Time 10.8 Seconds (9.0-12.2)
--- NOTE | 2025-10-01 15:01 | EDNOTE_ITS ---
ED GI Bleed RME/HPI General Chief complaint: GI Bleed Stated complaint: vomiting blood Time Seen by Provider: 10/01/25 14:35 Arrival date/time: 10/01/25 11:52 Limitations: no limitations RME / HPI RME / HPI Narrative: 10/01/25 11:52 35-year-old female presents to the Emergency Department today stating that she was in the shower today and began coughing blood DR. GLEASON MAIN ED EVALUATION: 35 year old female with no stated medical history presents to the ED for evaluation of vomiting bright red blood once today. Reports she had four episode of forceful vomiting prior to vomiting blood. Accompanied by upper abdominal discomfort with either lying down, sitting, or standing. Denies any history of similar vomiting blood or abdominal pain. No other associated symptoms reported. Denies fevers, chills, chest pain, cough, shortness of breath, bloody or black stools, or urinary symptoms. Denies any known history of gastric ulcers, GERD, or gastritis. Exam: On exam well-appearing does not appear ill or toxic Impression: Labs and imaging obtained Related Data Previous Rx's ?Medication ?Instructions ?Recorded ibuprofen 800 mg tablet (IBU) 800 mg PO TID PRN pain # 30 tabs 07/17/21 metaxalone 800 mg tablet (Skelaxin) 800 mg PO TID PRN muscle pain #30 02/16/22 tabs methylprednisolone 4 mg tablets in See Rx Instructions .Route 02/16/22 a dose pack (Methylpred DP) .COMPLEX #21 tabs baclofen 10 mg tablet 10 mg PO BID PRN pain #20 ta bs 05/14/22 hydrocodone 5 mg-acetaminophen 325 1 tab PO BID PRN pa in #6 tabs 05/14/22 mg tablet ibuprofen 800 mg tablet 800 mg PO TID PRN pain #30 t abs 05/14/22 tramadol 37.5 mg-acetaminophen 325 1 tab PO TID PRN pa in #15 tabs 08/17/22 mg tablet (Ultracet) fluticasone propionate 50 1 spray intranasal BID #16 g jason 12/01/22 mcg/actuation nasal spray,suspension (Flonase Allergy Relief) montelukast 10 mg tablet 10 mg PO QDAY #30 tabs 12/01 (Singulair) amoxicillin 875 mg-potassium 1 tab PO BID #14 tabs 11/20 clavulanate 125 mg tablet hydrocodone 5 mg-acetaminophen 325 1 tab PO Q6H PRN pa in #10 tabs 05/11/25 mg tablet ondansetron 4 mg disintegrating 4 mg PO Q8H PRN nausea and 05/11/25 tablet vomiting #10 tabs famotidine 40 mg tablet (Pepcid) 40 mg PO QPM GASTRITI S #30 tabs 10/01/25 Allergies Allergy/AdvReac Type Severity Reaction Status Date / Time morphine Allergy Severe Anxiety Verified 10/01/25 11:55 latex Allergy Rash Verified 10/01/25 11:55 Review of Systems Review of Systems Systems Reviewed: All systems reviewed, normal except as documented Past Medical History Past Medical History HEMATOLOGIC: Positive Anemia PSYCHO/SOCIAL: Positive Anxiety OTHER HISTORY: Positive Chicken Pox Family History FAMILY HISTORY: Positive Family Cardiac Disorders and Family Cancer Surgical History SURGICAL: Positive Section Social History SMOKING STATUS: Never smoker ED Exam General Limitations: Present no limitations General appearance: Present alert and anxious Head Head exam: Present atraumatic Eye Eye exam: Present normal appearance, PERRL and EOMI ENT ENT exam: Present normal exam, normal oropharynx and mucous membranes moist Neck Neck exam: Present normal inspection, full ROM and trachea midline Chest Chest inspection: Present normal inspection and symmetric chest wall rise Respiratory Respiratory exam: Present normal lung sounds bilaterally Cardiovascular Cardiovascular exam: Present regular rate, normal rhythm and normal heart sounds Abdominal Exam Abdominal exam: Present soft and normal bowel sounds; Absent distention, tenderness, guarding, rebound or rigidity Extremities Exam Extremities exam: Present normal inspection and full ROM Back Exam Back exam: Present normal inspection and full ROM Neurological Exam Neurological exam: Present alert, oriented X3 and CN II-XII intact Psychiatric Psychiatric exam: Present normal affect and normal mood Skin Skin exam: Present warm, dry, intact and normal color Course Quality Measures none Orders Category Date Time Status EKG (ED ONLY) *Do not use* NOW Care 10/01/25 12:16 Completed EKG (ED Only) Stat Exams 10/01/25 12:16 Draft XR chest 2V Stat Exams 10/01/25 12:16 Completed B-Type Natriuretic Peptide Stat Lab 10/01/25 12:40 Completed CBC Stat Lab 10/01/25 12:40 Completed Comprehensive Metabolic Panel Stat Lab 10/01/25 12:40 Completed D-Dimer Stat Lab 10/01/25 12:40 Completed HCG,Qualitative Serum Stat Lab 10/01/25 12:40 Completed Magnesium Stat Lab 10/01/25 12:40 Completed Partial Thromboplastin Time Stat Lab 10/01/25 12:40 Completed Prothrombin Time with INR Stat Lab 10/01/25 12:40 Completed Troponin I Stat Lab 10/01/25 12:40 Completed Famotidine [Pepcid] Med 10/01/25 15:05 Discontinued 40 mg PO X1 ONE Vital Signs Vital signs: Vital Signs Temperature 98.5 F 10/01/25 12:12 Pulse Rate 91 10/01/25 12:12 Respiratory Rate 18 10/01/25 12:12 Blood Pressure 137/97 H 10/01/25 12:12 Pulse Oximetry (%) 100 10/01/25 12:12 Oxygen Delivery Method Room Air 10/01/25 12:12 Pulse ox is 100% on room air which is adequate. GI Bleed MDM Narrative MDM Narrative:: Araceli Sue am scribing for and in the presence of Dr. Gleason. Patient remains clinically stable throughout the emergency department visit. We reviewed all the results, analysis, and treatment plans. Patient is amenable to discharge. Strict return precautions were outlined. Patient data External records reviewed:: [facility] previous records Clinical information provided by:: patient Social determinants that could affect healthcare access:: none Patient has the following chronic illnesses:: None reported How is presenting disease/condition affected by chronic disease/condition?: no chronic disease Evaluation data The following diagnostics were reviewed and interpreted by me:: lab results, radiology exam(s) and EKG tracing(s) (EKG @ 12:22p, normal sinus rhythm, rate 91, no STEMI) Lab and/or radiology exams considered but not ordered:: None Interpretation Summary: Ordering Physician: Moises COLIN)Vicente NP Date of Service: 10/01/25 Procedure(s): XR chest 2V Accession Number(s): [id number] cc: Vicente De Leon NP, NP; Rikki Kumar MD; Elias Cervantes MD~ EXAMINATION: PA lateral chest 2 views TECHNIQUE: Upright PA lateral chest 2 views Date and time: October 01, 2025, 12:26 p.m., comparison September 30, 2024 1446 hours INDICATIONS: Left-sided chest pain and vomiting blood today FINDINGS: Normal heart size Lungs are clear Minor scarring left base No pneumonia or pulmonary edema Intact osseous rectors IMPRESSION: No pneumonia or pulmonary edema Dictated By: Elias Cervantes MD Signed By: <Electronically signed by Elias Cervantes MD in OV> 10/01/25 1244 Medications / Prescriptions Medications or Prescriptions considered but not ordered:: None Medication administrations:: Medication Administration History Discontinued Medications Famotidine (Famotidine 20 Mg Tablet) 40 mg PO X1 ONE Stop: 10/01/25 15:06 Last Admin: 10/01/25 15:20 Dose: 40 mg Documented By: See above Consultations Consultation(s) initiated? (list below): No Diagnosis GI bleed differential diagnosis: esophageal varices, gastritis, Gwen-Araiza syndrome and Upper gastrointestinal hemorrhage Most likely diagnosis given after review of the tests above:: Vomiting Gwen-araiza tear Admission Indicated Admission indicated?: not indicated Explain why admission is indicated or not indicated:: With no condition needing emergent intervention, there was no indication for admission. Admission Request Was there a request for admission?: No Disposition Plan Disposition Plan: Discharge Discharge Attestation Discharge Attestation: The patient and all family members were given an opportunity to ask questions and understood the discharge instructions. Discharge instructions specifically effects, indications for sooner follow up or return to the emergency department, and the expected course of current diagnosis. Patient condition: Stable Discharge Plan Plan Patient Disposition: HOME (Self Care) Patient condition on transfer: Stable Prescriptions/Referrals Prescriptions/Med Rec: New famotidine [Pepcid] 40 mg tablet 40 mg PO QPM MDD 1 Qty: 30 1RF No Action ibuprofen 800 mg tablet 800 mg PO TID PRN (Reason: pain) Qty: 30 0RF hydrocodone-acetaminophen 5-325 mg tablet 1 tab PO BID MDD 10 PRN (Reason: pain) Qty: 6 0RF baclofen 10 mg tablet 10 mg PO BID PRN (Reason: pain) Qty: 20 0RF ibuprofen [IBU] 800 mg tablet 800 mg PO TID PRN (Reason: pain) Qty: 30 0RF methylprednisolone [Methylpred DP] 4 mg tablets,dose pack See Rx Instructions .ROUTE .COMPLEX Qty: 21 0RF Rx Instructions: Take as directed on pack metaxalone [Skelaxin] 800 mg tablet 800 mg PO TID PRN (Reason: muscle pain) Qty: 30 0RF tramadol-acetaminophen [Ultracet] 37.5-325 mg tablet 1 tab PO TID PRN (Reason: pain) Qty: 15 0RF amoxicillin-pot clavulanate 875-125 mg tablet 1 tab PO BID Qty: 14 0RF fluticasone propionate [Flonase Allergy Relief] 50 mcg/actuation spray,suspension 1 spray intranasal BID Qty: 16 0RF Rx Instructions: administer into each nostril montelukast [Singulair] 10 mg tablet 10 mg PO QDAY Qty: 30 0RF hydrocodone-acetaminophen 5-325 mg tablet 1 tab PO Q6H MDD max 4 tabs per day PRN (Reason: pain) Qty: 10 0RF ondansetron 4 mg tablet,disintegrating 4 mg PO Q8H PRN (Reason: nausea and vomiting) Qty: 10 0RF Referrals: Rikki Kumar MD [Primary Care Provider, Family Practice] - In 1 week Problem List Clinical Impression: Gwen-Araiza tear, Vomiting Patient/Caregiver Discharge Instructions Discharge Activity: activity as tolerated Education Materials: Gwen-Araiza Tear, ED Vomiting (Adult) Additional Instructions: Follow-up with your doctor in 1 day. Consider GI consult if symptoms persist take medication in the evening daily until seen by your doctor. Print Language: Armenian Stand Alone Forms: Claudia Award Info., Patient Portal Info Letter
[2025-10-01] MEDS: FAMOTIDINE 20 MG TABLET 40 MG PO (15:20)
== END 2025-10-01 16:32 | disposition home or self-care (01) ==
PROVIDERS: Nurse Practitioner Primary Care; Emergency Provider Family Medicine; PCP Family Medicine
DX: K22.6 Gastro-esophageal laceration-hemorrhage syndrome (principal); R07.89 Other chest pain; R94.31 Abnormal electrocardiogram [ECG] [EKG]
CPT/HCPCS: 36415; 71046; 80053; 83735; 83880; 84484; 84703; 85025; 85379; 85610; 85730; 93005; 99283; A9270